=== PATIENT | male | born 1990 | race Caucasian/White ===

== ENCOUNTER → 2024-09-23 | Outpatient (CLI) | payer MEDICARE, BC, MEDICAID, SELFPAY ==
--- NOTE | 2024-09-23 08:00 | XR_ITS ---
Examination: CT left elbow, without contrast. 2-D sagittal reconstructions. 2-D coronal reconstructions. 3-D reconstructions. Date and time of exam:September 23, 2024 0810 hours INDICATIONS: Left elbow pain joint locking one month, clinical diagnosis ossified elbow joint body CTDI: vol (mGy):4.48 DLP: (mGycm):95.6 Technique: Multiple 1.25 mm axial sections of the left elbow without intravenous contrast have been obtained. 2-D sagittal and coronal reconstructions have been obtained. 3-D reconstructions have been obtained. Low dose protocols were performed. One or more of the following dose reduction techniques were used; automated exposure control, adjustment of the mA and/or KV according to patient size, use of iterative reconstruction technique. Findings: Moderate elbow osteoarthritis 3 mm ossified body adjacent to the posterior olecranon 7 mm ossified body anterior to the distal humerus 4 mm 2 mm 3 mm 2 mm ossified bodies in the humeral olecranon joint No acute fracture IMPRESSION: Multiple ossified joint bodies primarily in the humeral olecranon joint
== END | disposition home or self-care (01) ==
LOC: CCTX 07:54
PROVIDERS: Referring Provider Orthopaedic Surgery; Visit Provider Orthopaedic Surgery
DX: M25.822 Other specified joint disorders, left elbow (principal)
CPT/HCPCS: 73200

== ENCOUNTER → 2025-05-28 | Outpatient (CLI) | payer MEDICARE, BC, SELFPAY ==
--- NOTE | 2025-05-28 10:00 | XR_ITS ---
Examination: MRI left elbow, without contrast Date and time of exam: May 28, 2025 1053 hours INDICATIONS: Elbow pain post elbow surgery to remove bone chips November 2024 Technique: Multiple axial sagittal and coronal images of the left elbow have been obtained with the Siemens high-resolution 1.5 Janette MRI scanner. Images obtained include T2-weighted fat-suppressed sagittal sections, TR 3500, TE 46, T2 weighted coronal fat suppressed images, TR 3050, TE 84, T2-weighted transverse fat suppressed images, TR 3260, TE 63, proton density transverse images, TR 4720 TE 46, and T1 weighted coronal images, TR 560, TE 13. Findings: Severe left elbow osteoarthritis Large elbow effusion Common flexor and common extensor tendons intact 7 mm 5 mm 3 mm 4 mm ossified joint bodies in the posterior joint space 6 mm ossified joint body in the anterior joint space adjacent to the radius Normal insertion long head of the biceps and the radial tuberosity IMPRESSION: Severe elbow osteoarthritis Multiple ossified joint bodies
== END | disposition home or self-care (01) ==
LOC: SMRI 09:56
PROVIDERS: PCP Internal Medicine; Referring Provider Orthopaedic Surgery; Visit Provider Orthopaedic Surgery
DX: M19.022 Primary osteoarthritis, left elbow (principal); M25.822 Other specified joint disorders, left elbow
CPT/HCPCS: 73221

== ENCOUNTER → 2025-06-02 | Outpatient (CLI) | payer MEDICARE, BC, SELFPAY ==
--- NOTE | 2025-06-02 13:30 | XR_ITS ---
Examination: CT left elbow, without contrast. 2-D sagittal reconstructions. 2-D coronal reconstructions. 3-D reconstructions. Date and time of exam:June 02, 2025, 1416 hours Comparison September 23, 2024 INDICATIONS: Elbow pain years, removal bone chips in the joint November 2024 CTDI: vol (mGy):4.75 DLP: (mGycm):1009 Technique: Multiple 1.25 mm axial sections of the elbow have been obtained. 2-D sagittal and coronal reconstructions have been obtained. 3-D reconstructions have been obtained. Low dose protocols were performed. One or more of the following dose reduction techniques were used; automated exposure control, adjustment of the mA and/or KV according to patient size, use of iterative reconstruction technique. Findings: 4.5 mm ossified joint body posterior joint space adjacent to the ulnar notch No acute fracture No avascular necrosis 7 mm ossified joint body adjacent to the coronoid process of the ulna IMPRESSION: Significant elbow osteoarthritis Ossified joint bodies as above
== END | disposition home or self-care (01) ==
PROVIDERS: PCP Orthopaedic Surgery
DX: M19.022 Primary osteoarthritis, left elbow (principal); M89.8X8 Other specified disorders of bone, other site
CPT/HCPCS: 73200